=== PATIENT | male | born 2000 | race Two or more races ===

== ENCOUNTER → 2023-09-21 | Emergency (ER) | payer OTHER ==
[~2023-09-21] VITALS: Ht 170.2 cm; Wt 98.9 kg
[2023-09-21 15:15] LABS: HEMATOCRIT 42.9 % (39.0-48.0); HEMOGLOBIN 14.4 g/dL (13-16.00); MEAN CELL VOLUME 83.6 fL (80.0-100.00); MEAN CORPUSCULAR HEMOGLOBIN 28.1 pg (27.00-32.0); MEAN CORPUSCULAR HGB CONC 33.7 g/dl (32.0-36.0); PLATELET COUNT 235 K/uL (150-450); RED BLOOD COUNT 5.13 M/uL (4.00-6.00)
== END | disposition home or self-care (01) ==
LOC: ER 09:43
PROVIDERS: General Practice
DX: B02.9 Zoster without complications (principal); R21 Rash and other nonspecific skin eruption